=== PATIENT | female | born 1985 | race African-American/Black ===

== ENCOUNTER 2022-02-26 17:47 | Emergency (ER) | payer MEDICAID ==
[~2022-02-26] VITALS: Ht 167.6 cm; Wt 80.0 kg
[2022-02-26] MEDS ORDERED: KETOROLAC 60MG/2ML VIAL IM ONE (22:00)
[2022-02-27 00:21] LABS: CLARITY URINE CLEAR (CLEAR); COLOR URINE YELLOW (YELLOW); KETONES URINE 1+ (NEGATIVE); LEUKOCYTE ESTERASE URINE NEGATIVE (NEGATIVE); NITRITE URINE POSITIVE (NEGATIVE); OCCULT BLOOD URINE 2+ (NEGATIVE); PROTEIN URINE NEGATIVE (NEGATIVE); SPECIFIC GRAVITY URINE 1.028 (1.005-1.030); UROBILINOGEN URINE 0.2 E.U./dL (0.2-1.0)
[2022-02-27 00:53] LABS: BASOPHILS % 0.5 % (0.0-2.0); EOSINOPHILS % 0.8 % (0.0-5.0); HEMATOCRIT. 37.6 % (36.0-48.0); HEMOGLOBIN. 12.8 g/dL (12.0-16.0); LYMPHOCYTES % 31.6 % (20.0-50.0); MEAN CORPUSCULAR HEMOGLOBIN 26.1 pg (28.0-32.0); MEAN CORPUSCULAR VOLUME 76.9 fL (81.0-99.0); MEAN PLATELET VOLUME 9.6 fl (7.4-10.4); MONOCYTES % 7.8 % (2.0-8.0); NEUTROPHILS % 59.3 % (40.0-76.0); PLATELET 285 x1000/uL (130-400); RED BLOOD CELL COUNT 4.89 mill/uL (4.2-5.4)
[2022-02-27 00:59] LABS: CHLORIDE 107 mEq/L (98-107)
[2022-02-27] MEDS ORDERED: IBUP-2028 MT (01:25)
[2022-02-27] MEDS ORDERED: CEPH500C2 MT (01:25)
[2022-02-27 01:29] LABS: HCG SCREEN NEGATIVE
[2022-02-27 01:38] VITALS: BP 123/72
== END 2022-02-27 01:44 | disposition home or self-care (01) ==
LOC: ER 17:47
DX: M54.9 Dorsalgia, unspecified (principal); N39.0 Urinary tract infection, site not specified; X50.0XXA Overexertion from strenuous movement or load, initial encounter; X50.1XXA Overexertion from prolonged static or awkward postures, initial encounter; X50.3XXA Overexertion from repetitive movements, initial encounter; Y93.89 Activity, other specified; Y92.9 Unspecified place or not applicable
CPT/HCPCS: 36415; 72100; 80053; 81003; 81025; 84703; 85025; 96372; 99284; J1885

== ENCOUNTER 2022-03-03 11:23 | Emergency (ER) | payer MEDICAID ==
[~2022-03-03] VITALS: Ht 172.7 cm; Wt 108.0 kg
[~2022-03-03 11:23] MED LIST: CEPH500C2 MT; IBUP-2028 MT
[2022-03-03] MEDS ORDERED: METHOCARBAMOL 500MG TABLET PO ONE (12:00)
[2022-03-03] MEDS ORDERED: HYDROCODONE/ACETAMINOPHEN 5/325MG TABLET PO ONE (12:00)
[2022-03-03 12:34] VITALS: BP 123/75
[2022-03-03] MEDS: LIDOCAINE 5% PATCH TOP SCH ×2 (12:34→12:41)
[2022-03-03] MEDS ORDERED: METH-773 MT (16:46)
[2022-03-03] MEDS ORDERED: NAPR-681 MT (16:46)
[2022-03-03] MEDS ORDERED: HYDR-4001 MT (16:46)
[2022-03-03] MEDS ORDERED: LIDO1ADH5 TP (16:46)
== END 2022-03-03 17:08 | disposition home or self-care (01) ==
LOC: ER 12:45
DX: M54.50 Low back pain, unspecified (principal)
CPT/HCPCS: 81025; 99284